=== PATIENT | male | born 1965 | race Caucasian/White ===

== ENCOUNTER 2018-03-26 16:17 | Inpatient (IN) | payer OTHER ==
--- NOTE | 2018-03-26 16:20 | PDOC ---
History of Present Illness - General History Source: Patient, Spouse Exam Limitations: No Limitations - History of Present Illness Initial Comments: 03/26/18 16:31 The patient is a 52 year old male, with a significant past medical history of HTN and sleep apnea, who presents to the emergency department with, pleuritic pain. As per patient, his chest pain originally onset as diffusely across the chest and has since worsened to right sided with associated shortness of breath. He notes that he was worked up for DVTs (with ultrasound studies) earlier this year. Patients notes his last stress test was earlier this year. He denies any palpitations. He denies any recent fevers, chills, headache or dizziness. He denies any recent nausea, vomit, diarrhea or constipation. He denies any recent dysuria, frequency, urgency or hematuria. Allergies: NKA Past surgical history: None reported. Social History: Works construction. Nonsmoker. Denies EtOH use and recreational drug use. Primary Care Physician: Dr. Abreu <Scooter Grajeda - Last Filed: 03/26/18 18:00> <Светлана Mitchell - Last Filed: 03/30/18 20:31> - General Chief Complaint: Chest Pain Stated Complaint: CHEST PAIN Time Seen by Provider: 03/26/18 16:20 Past History <Scooter rGajeda - Last Filed: 03/26/18 18:00> <Светлана Mitchell - Last Filed: 03/30/18 20:31> - Past Medical History Allergies/Adverse Reactions: Allergies Allergy/AdvReac Type Severity Reaction Status Date / Time No Known Allergies Allergy Verified 03/26/18 17:11 Home Medications: Ambulatory Orders Amlodipine Besylate [Norvasc -] 10 mg PO DAILY 03/26/18 Losartan Potassium 100 mg PO DAILY 03/26/18 Morphine Injection - [Morphine Injection 2 mg/1 mL -] 4 mg IVPUSH Q4H PRN #4 mg MDD 24 03/27/18 Pantoprazole Sodium [Protonix IV] 40 mg IVPUSH DAILY vial 03/27/18 Review of Systems - Review of Systems Able to Perform ROS?: Yes Comments:: 03/26/18 16:31 GENERAL/CONSTITUTIONAL: No fever or chills. No weakness. HEAD, EYES, EARS, NOSE AND THROAT: No change in vision. No ear pain or discharge. No sore throat. +CARDIOVASCULAR: Right sided chest pain. SOB. RESPIRATORY: No cough, wheezing, or hemoptysis. GASTROINTESTINAL: No nausea, vomiting, diarrhea or constipation. GENITOURINARY: No dysuria, frequency, or change in urination. MUSCULOSKELETAL: No joint or muscle swelling or pain. No neck or back pain. SKIN: No rash NEUROLOGIC: No headache, vertigo, loss of consciousness, or change in strength/ sensation. ENDOCRINE: No increased thirst. No abnormal weight change. HEMATOLOGIC/LYMPHATIC: No anemia, easy bleeding, or history of blood clots. ALLERGIC/IMMUNOLOGIC: No hives or skin allergy. All Other Systems: Reviewed and Negative <Scooter Grajeda - Last Filed: 03/26/18 18:00> *Physical Exam - Physical Exam Comments: GENERAL: Awake, alert, and fully oriented, in no acute distress HEAD: No signs of trauma EYES: PERRLA, EOMI, sclera anicteric, conjunctiva clear ENT: Auricles normal inspection, hearing grossly normal, nares patent, oropharynx clear without exudates. Moist mucosa NECK: Normal ROM, supple, no lymphadenopathy, JVD, or masses LUNGS: Breath sounds equal, clear to auscultation bilaterally. No wheezes, and no crackles. +Splinting upon deep inspiration. HEART: Regular rate and rhythm, normal S1 and S2, no murmurs, rubs or gallops ABDOMEN: Soft, nontender, normoactive bowel sounds. No guarding, no rebound. No masses EXTREMITIES: Normal range of motion, no edema. No clubbing or cyanosis. No cords, erythema, or tenderness NEUROLOGICAL: Cranial nerves II through XII grossly intact. Normal speech, normal gait SKIN: Warm, Dry, normal turgor, no rashes or lesions noted. <Светлана Mitchell - Last Filed: 03/30/18 20:31> Heart Score/ECG Review - History History: Slightly suspicious - Electrocardiogram EKG: Normal - Age Age: 45-65 - Risk Factors Risk Factors Heart Score: Yes Hx Hypertension, Yes Hx Obesity Based on the list above the patient has:: 1-2 risk factors - Troponin Troponin: </= normal limit - Score Heart Score - Total: 2 - ECG Impressions Comment:: EKG read 16:09- NSR 75 bpm, no acute ST/T changes <Светлана Mitchell - Last Filed: 03/30/18 20:31> ED Treatment Course - LABORATORY CBC & Chemistry Diagram: 03/26/18 16:35 03/26/18 16:35 <Scooter Grajeda - Last Filed: 03/26/18 18:00> - LABORATORY CBC & Chemistry Diagram: 03/27/18 07:35 03/27/18 07:35 <Светлана Mitchell - Last Filed: 03/30/18 20:31> Medical Decision Making - Medical Decision Making 03/26/18 19:[address] Moeller at 7pm shift change. Awaiting CTA to r/o PE due to elevated D-dimer. <Светлана Mitchell - Last Filed: 03/30/18 20:31> *DC/Admit/Observation/Transfer - Attestations Scribe Attestion: 03/26/18 16:31 Documentation prepared by Scooter Grajeda, acting as medical secretary teacher for Светлана Mitchell MD. <Scooter Grajeda - Last Filed: 03/26/18 18:00> <Светлана Mitchell - Last Filed: 03/30/18 20:31> Diagnosis at time of Disposition: Mediastinal mass, Pulmonary edema, Sleep apnea, Low oxygen saturation - Discharge Dispostion Condition at time of disposition: Stable
[2018-03-26 17:01] LABS: BASO % 0.3 % (0-2.0); EOS % 0.8 % (0-4.5); HEMATOCRIT 42.6 % (35.4-49); HEMOGLOBIN 14.2 GM/dl (11.7-16.9); LYMPH % 7.7 % (8-40); MCH 29.2 pg (25.7-33.7); MCHC 33.3 g/dl (32.0-35.9); MEAN CELL VOLUME 87.7 fl (80-96); MEAN PLT VOLUME 8.2 fl (7.5-11.1); MONO % 4.8 % (3.8-10.2); NEUT % 86.4 % (42.8-82.8); PLATELET COUNT 158 K/MM3 (134-434); RBC 4.86 M/mm3 (4.00-5.60); RDW 12.6 % (11.9-15.9); WHITE BLOOD COUNT 9.5 K/mm3 (4.0-10.8)
[2018-03-26 17:09] LABS: INR 1.2 (0.82-1.09); PROTHROMBIN TIME (PATIENT) 13.4 SEC (10.2-13.0)
[2018-03-26] MEDS ORDERED: KETOROLAC TROMETHAMINE 30 MG/1 ML VIAL IVPUSH ONE (17:13)
[2018-03-26 17:15] LABS: ALBUMIN 3.9 g/dl (3.5-5.0); ALK PHOS 59 U/L (32-92); ANION GAP 7 MMOL/L (8-16); BILIRUBIN,TOTAL 1.2 mg/dl (0.2-1.0); BLOOD UREA NITROGEN 17 mg/dl (7-18); CALCIUM 8.9 mg/dl (8.4-10.2); CHLORIDE 104 mmol/L (98-107); CO2 27 mmol/L (22-28); CREATININE 0.8 mg/dl (0.6-1.3); GLUCOSE,RANDOM 121 mg/dl (74-106); SGOT/AST 17 U/L (10-42); SGPT/ALT 25 U/L (10-40); SODIUM 138 mmol/L (136-145); TOT PROT 7.1 g/dl (6.4-8.3)
[2018-03-26] MEDS ORDERED: KETOROLAC TROMETHAMINE 30 MG/1 ML VIAL ONE (17:15)
[2018-03-26 17:52] LABS: N-TERMINAL BNP 64.2 pg/ml (5-125)
--- NOTE | 2018-03-26 20:48 | PDOC ---
*Physical Exam - Vital Signs Last Vital Signs Temp Pulse Resp BP Pulse Ox 99.6 F 75 28 H 134/66 94 L 03/26/18 19:59 03/26/18 19:59 03/26/18 19:59 03/26/18 19:59 03/26/18 19:59 <NicciScooter - Last Filed: 03/26/18 20:48> - Vital Signs Last Vital Signs Temp Pulse Resp BP Pulse Ox 99.6 F 75 28 H 134/66 94 L 03/26/18 19:59 03/26/18 19:59 03/26/18 19:59 03/26/18 19:59 03/26/18 19:59 <Kenya Moeller - Last Filed: 03/26/18 21:10> ED Treatment Course - LABORATORY CBC & Chemistry Diagram: 03/26/18 16:35 03/26/18 16:35 - ADDITIONAL ORDERS Additional order review: Laboratory Results 03/26/18 03/26/18 03/26/18 16:35 16:35 16:35 PT with INR INR D-Dimer 1225 H Sodium 138 Potassium 4.0 Chloride 104 Carbon Dioxide 27 Anion Gap 7 L BUN 17 Creatinine 0.8 Creat Clearance w eGFR > 60 Random Glucose 121 H Calcium 8.9 Total Bilirubin 1.2 H AST 17 ALT 25 Alkaline Phosphatase 59 Creatine Kinase 50 Troponin I < 0.03 B-Natriuretic Peptide 64.2 Total Protein 7.1 Albumin 3.9 03/26/18 16:35 PT with INR 13.4 H INR 1.20 D-Dimer Sodium Potassium Chloride Carbon Dioxide Anion Gap BUN Creatinine Creat Clearance w eGFR Random Glucose Calcium Total Bilirubin AST ALT Alkaline Phosphatase Creatine Kinase Troponin I B-Natriuretic Peptide Total Protein Albumin 03/26/18 16:35 RBC 4.86 MCV 87.7 MCHC 33.3 RDW 12.6 MPV 8.2 Neutrophils % 86.4 H Lymphocytes % 7.7 L Monocytes % 4.8 Eosinophils % 0.8 Basophils % 0.3 - RADIOLOGY Radiograph Interpretation: 03/26/18 20:49 EXAM: CTA chest with contrast [id number] DATE OF EXAM: 2018-03-26 18:45:48 REASON FOR EXAM: Right sided pleuritic chest pain COMPARISON: None Findings: 4.5 cm x 4.3 cm right anterior mediastinal mass. Differential diagnosis includes thymoma, adenopathy, hemorrhagic pericardial cyst, and metastatic disease. Evaluation of pulmonary arteries is limited due to respiratory motion and suboptimal opacification with IV contrast. No obvious pulmonary embolism. No evidence for aortic dissection Mild cardiomegaly without significant pericardial effusion. Small right pleural effusion. Mild bilateral patchy groundglass opacities and interstitial thickening in the lungs likely representing mild pulmonary edema. Scattered atelectasis and fibrotic changes in the remainder of the lungs. No pneumothorax. Possible hepatic steatosis. Splenomegaly. One or more of the following dose reduction techniques were used: automated exposure control, adjustment of the mA and/or kV according to patient size, use of iterative reconstructive technique. Read by: Salas Banegas MD - Medications Given in the ED: ED Medications Discontinued Medications Generic Name Dose Route Start Last Admin Trade Name Freq PRN Reason Stop Dose Admin Ketorolac Tromethamine 30 mg 03/26/18 17:13 03/26/18 17:20 Toradol Injection - IVPUSH 03/26/18 17:14 30 mg ONCE ONE Administration <Scooter Grajeda - Last Filed: 03/26/18 20:48> - LABORATORY CBC & Chemistry Diagram: 03/26/18 16:35 03/26/18 16:35 - ADDITIONAL ORDERS Additional order review: Laboratory Results 03/26/18 03/26/18 03/26/18 16:35 16:35 16:35 PT with INR INR D-Dimer 1225 H Sodium 138 Potassium 4.0 Chloride 104 Carbon Dioxide 27 Anion Gap 7 L BUN 17 Creatinine 0.8 Creat Clearance w eGFR > 60 Random Glucose 121 H Calcium 8.9 Total Bilirubin 1.2 H AST 17 ALT 25 Alkaline Phosphatase 59 Creatine Kinase 50 Troponin I < 0.03 B-Natriuretic Peptide 64.2 Total Protein 7.1 Albumin 3.9 03/26/18 16:35 PT with INR 13.4 H INR 1.20 D-Dimer Sodium Potassium Chloride Carbon Dioxide Anion Gap BUN Creatinine Creat Clearance w eGFR Random Glucose Calcium Total Bilirubin AST ALT Alkaline Phosphatase Creatine Kinase Troponin I B-Natriuretic Peptide Total Protein Albumin 03/26/18 16:35 RBC 4.86 MCV 87.7 MCHC 33.3 RDW 12.6 MPV 8.2 Neutrophils % 86.4 H Lymphocytes % 7.7 L Monocytes % 4.8 Eosinophils % 0.8 Basophils % 0.3 - Medications Given in the ED: ED Medications Discontinued Medications Generic Name Dose Route Start Last Admin Trade Name Kike PRN Reason Stop Dose Admin Ketorolac Tromethamine 30 mg 03/26/18 17:13 03/26/18 17:20 Toradol Injection - IVPUSH 03/26/18 17:14 30 mg ONCE ONE Administration <Kenya Moeller - Last Filed: 03/26/18 21:10> Medical Decision Making - Medical Decision Making 03/26/18 20:52 I paged Pt's physician Dr. Sujata Abreu. Dr Ellis was mission planner and understands pt's diagnosis. She agrees that pt can follow in the office tomorrow, and they can figure out a plan to work up patient as an outpatient. I spoke to our Pulm mission planner, who recommends that we obs the patient overnight, as his pulsox is running low 91-94% at rest off O2. <Kenya Moeller - Last Filed: 03/26/18 21:10> *DC/Admit/Observation/Transfer - Attestations Scribe Attestion: 03/26/18 20:49 Documentation prepared by Scooter Grajeda, acting as medical hospital sales for Kenya Moeller MD. <Scooter Grajeda - Last Filed: 03/26/18 20:48> - Discharge Dispostion Decision to Admit order: Yes <Kenya Moeller - Last Filed: 03/26/18 21:10> Diagnosis at time of Disposition: Mediastinal mass, Pulmonary edema, Sleep apnea, Low oxygen saturation - Discharge Dispostion Condition at time of disposition: Guarded - Referrals Referrals: Shruti Abreu [Primary Care Provider] - - Patient Instructions - Post Discharge Activity
[2018-03-26] MEDS ORDERED: MORPHINE SULFATE 2 MG/ML VIAL IVPUSH ONE (21:58)
[2018-03-26 22:17] VITALS: BMI 40.0
[2018-03-26] MEDS ORDERED: morphine CARPU-JECT 2 MG/1 ML DISP.SYRIN ONE (22:21)
--- NOTE | 2018-03-26 22:51 | HP ---
CHIEF COMPLAINT: Pleuritic chest pain PCP: Sujata Abreu HISTORY OF PRESENT ILLNESS: 52 year old male, with a significant past medical history of HTN and sleep apnea c/o right sided pleuritic chest pain about 6/10 in severity for the last 2 days. Started insiduously. No causative factors. Patient denied any fevers, shortness of breath, night sweats, or recent weight loss. No history of trauma. No relation of pain to exercise. 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 Denied any radiation exposure to chest. ER course was notable for: (1) CTA (2) (3) Recent Travel: none PAST MEDICAL HISTORY: HTN and sleep apnea PAST SURGICAL HISTORY: no Social History: Smoking: no Alcohol: no Drugs: no Family History: mother with MS, father with lung ca Allergies No Known Allergies Allergy (Verified 03/26/18 17:11) HOME MEDICATIONS: Home Medications Medication Instructions Recorded Amlodipine Besylate [Norvasc -] 10 mg PO DAILY 03/26/18 Losartan Potassium 100 mg PO DAILY 03/26/18 Rabeprazole Sodium [Aciphex] 20 mg PO DAILY 03/26/18 REVIEW OF SYSTEMS CONSTITUTIONAL: Absent: fever, chills, diaphoresis, generalized weakness, malaise, loss of appetite, weight change HEENT: Absent: rhinorrhea, nasal congestion, throat pain, throat swelling, difficulty swallowing, mouth swelling, ear pain, eye pain, visual changes CARDIOVASCULAR: Absent:, syncope, palpitations, irregular heart rate, lightheadedness, peripheral edema RESPIRATORY: Absent: cough, shortness of breath, dyspnea with exertion, orthopnea, wheezing, stridor, hemoptysis GASTROINTESTINAL: Absent: abdominal pain, abdominal distension, nausea, vomiting, diarrhea, constipation, melena, hematochezia GENITOURINARY: Absent: dysuria, frequency, urgency, hesitancy, hematuria, flank pain, genital pain MUSCULOSKELETAL: Present - right chest pain Absent: myalgia, arthralgia, joint swelling, back pain, neck pain SKIN: Absent: rash, itching, pallor HEMATOLOGIC/IMMUNOLOGIC: Absent: easy bleeding, easy bruising, lymphadenopathy, frequent infections ENDOCRINE: Absent: unexplained weight gain, unexplained weight loss, heat intolerance, cold intolerance NEUROLOGIC: Absent: headache, focal weakness or paresthesias, dizziness, unsteady gait, seizure, mental status changes, bladder or bowel incontinence PSYCHIATRIC: Absent: anxiety, depression, suicidal or homicidal ideation, hallucinations. PHYSICAL EXAMINATION Vital Signs - 24 hr 03/26/18 03/26/18 03/26/18 16:18 18:00 18:15 Temperature 99.4 F Pulse Rate 77 78 Pulse Rate [ 78 Right Radial] Respiratory 18 28 H Rate Blood Pressure 153/76 Blood Pressure 128/63 [Right Arm] O2 Sat by Pulse 97 90 L 92 L Oximetry (%) 03/26/18 03/26/18 03/26/18 18:16 18:21 19:59 Temperature 99.6 F Pulse Rate 75 80 Pulse Rate [ 75 Right Radial] Respiratory 28 H Rate Blood Pressure Blood Pressure 134/66 [Right Arm] O2 Sat by Pulse 95 96 94 L Oximetry (%) 03/26/18 03/26/18 03/26/18 20:57 21:09 21:10 Temperature 100.0 F H Pulse Rate 89 77 72 Pulse Rate [ Right Radial] Respiratory 20 Rate Blood Pressure 146/67 Blood Pressure [Right Arm] O2 Sat by Pulse 92 L 96 96 Oximetry (%) GENERAL: Awake, alert, and fully oriented, in no acute distress, morbidly obese HEAD: Normal with no signs of trauma. EYES: Pupils equal, round and reactive to light, extraocular movements intact, sclera anicteric, conjunctiva clear. No lid lag. EARS, NOSE, THROAT: Ears normal, nares patent, oropharynx clear without exudates. Moist mucous membranes. NECK: Normal range of motion, supple without lymphadenopathy, JVD, or masses. LUNGS: Breath sounds equal, clear to auscultation bilaterally. No wheezes, and no crackles. No accessory muscle use. HEART: Regular rate and rhythm, normal S1 and S2 without murmur, rub or gallop. ABDOMEN: Soft, obese, nontender, not distended, normoactive bowel sounds, no guarding, no rebound, no masses. No hepatomegaly or splenomegaly. MUSCULOSKELETAL: Normal range of motion at all joints. No bony deformities or tenderness. No CVA tenderness. UPPER EXTREMITIES: 2+ pulses, warm, well-perfused. No cyanosis. No clubbing. No peripheral edema. LOWER EXTREMITIES: 2+ pulses, warm, well-perfused. No calf tenderness. No peripheral edema. NEUROLOGICAL: Cranial nerves II-XII intact. Normal speech. Normal gait. PSYCHIATRIC: Cooperative. Good eye contact. Appropriate mood and affect. SKIN: Warm, dry, normal turgor, no rashes or lesions noted, normal capillary refill. Laboratory Results - last 24 hr 03/26/18 03/26/18 03/26/18 16:35 16:35 16:35 WBC 9.5 RBC 4.86 Hgb 14.2 Hct 42.6 MCV 87.7 MCH 29.2 MCHC 33.3 RDW 12.6 Plt Count 158 MPV 8.2 Absolute Neuts (auto) 8.2 Neutrophils % 86.4 H Lymphocytes % 7.7 L Monocytes % 4.8 Eosinophils % 0.8 Basophils % 0.3 PT with INR 13.4 H INR 1.20 D-Dimer Sodium 138 Potassium 4.0 Chloride 104 Carbon Dioxide 27 Anion Gap 7 L BUN 17 Creatinine 0.8 Creat Clearance w eGFR > 60 Random Glucose 121 H Calcium 8.9 Total Bilirubin 1.2 H AST 17 ALT 25 Alkaline Phosphatase 59 Creatine Kinase 50 Troponin I B-Natriuretic Peptide 64.2 Total Protein 7.1 Albumin 3.9 03/26/18 03/26/18 16:35 16:35 WBC RBC Hgb Hct MCV MCH MCHC RDW Plt Count MPV Absolute Neuts (auto) Neutrophils % Lymphocytes % Monocytes % Eosinophils % Basophils % PT with INR INR D-Dimer 1225 H Sodium Potassium Chloride Carbon Dioxide Anion Gap BUN Creatinine Creat Clearance w eGFR Random Glucose Calcium Total Bilirubin AST ALT Alkaline Phosphatase Creatine Kinase Troponin I < 0.03 B-Natriuretic Peptide Total Protein Albumin CTA report reviewed- no PE, 4.3 x 4.5 cm right anterior mediastinal mass, hepatic steatosis, splenomegally ekg reviewed wnl. ASSESSMENT/PLAN: #52yo man with right anterior mediastinal mass- 4.3 cm x 4.5cm. Differential diagnosis includes thymoma, adenopathy, malignancy. Patient will require biopsy for diagnosis. Doubt cardiac source of chest pain as normal ekg and negative troponin. -observation -supplemental oxygen therapy through nasal cannula -ibuprofen 600mg po q6hrs prn if chest pain -thoracic surgery referral for biopsy of mediastinal mass -restart amlodipine and losartan -heparin sc for dvt ppx Visit type - Emergency Visit Emergency Visit: Yes ED Registration Date: 03/26/18 Care time: The patient presented to the Emergency Department on the above date and was hospitalized for further evaluation of their emergent condition. - New Patient This patient is new to me today: Yes Date on this admission: 03/27/18 - Critical Care Critical Care patient: No
[2018-03-26] MEDS: IBUPROFEN 600 MG TABLET (FP) PO PRN (23:53)
[2018-03-27] MEDS ORDERED: HEPARIN NA (PORCINE) 5,000 UNITS/ML 1ML VIAL SQ SCH (06:00)
[2018-03-27 08:49] LABS: HEMOGLOBIN 13.1 GM/dl (11.7-16.9); MCH 29.7 pg (25.7-33.7); MCHC 33.7 g/dl (32.0-35.9); MEAN PLT VOLUME 8.5 fl (7.5-11.1); PLATELET COUNT 141 K/MM3 (134-434); RBC 4.44 M/mm3 (4.00-5.60); RDW 12.2 % (11.9-15.9); WHITE BLOOD COUNT 8.3 K/mm3 (4.0-10.8)
[2018-03-27 09:00] LABS: ANION GAP 5 MMOL/L (8-16); BLOOD UREA NITROGEN 17 mg/dl (7-18); CALCIUM 8.6 mg/dl (8.4-10.2); CHLORIDE 106 mmol/L (98-107); CO2 29 mmol/L (22-28); CREATININE 0.6 mg/dl (0.6-1.3); GLUCOSE,RANDOM 105 mg/dl (74-106); POTASSIUM 4.2 mmol/L (3.5-5.1); SODIUM 140 mmol/L (136-145)
[2018-03-27] MEDS ORDERED: PATIENT'S OWN MEDICATION (NON-FORMULARY) (Losartan Potassium [Losartan Potassium] 100 MG) PO SCH (10:00)
[2018-03-27] MEDS: LOSARTAN POTASSIUM 50 MG TABLET (FP) PO SCH (10:06)
[2018-03-27] MEDS: amLODIPine BESYLATE 10 MG TABLET (FP) PO SCH (10:06)
--- NOTE | 2018-03-27 11:50 | PN ---
Physical Exam: SUBJECTIVE: Patient seen and examined OBJECTIVE: Vital Signs Period Temp Pulse Resp BP Sys/Clarke Pulse Ox Last 24 Hr 98.3 F-100.0 F 66-89 18-28 124-153/50-76 90-97 GENERAL: The patient is awake, alert, and fully oriented, in no acute distress. HEAD: Normal with no signs of trauma. EYES: PERRL, extraocular movements intact, sclera anicteric, conjunctiva clear. No ptosis. ENT: Ears normal, nares patent, oropharynx clear without exudates, moist mucous membranes. NECK: Trachea midline, full range of motion, supple. LUNGS: Breath sounds equal, clear to auscultation bilaterally, no wheezes, no crackles, no accessory muscle use. HEART: Regular rate and rhythm, S1, S2 without murmur, rub or gallop. ABDOMEN: Soft, nontender, nondistended, normoactive bowel sounds, no guarding, no rebound, no hepatosplenomegaly, no masses. EXTREMITIES: 2+ pulses, warm, well-perfused, no edema. NEUROLOGICAL: Cranial nerves II through XII grossly intact. Normal speech, gait not observed. PSYCH: Normal mood, normal affect. SKIN: Warm, dry, normal turgor, no rashes or lesions noted Laboratory Results - last 24 hr 03/26/18 03/26/18 03/26/18 16:35 16:35 16:35 WBC 9.5 RBC 4.86 Hgb 14.2 Hct 42.6 MCV 87.7 MCH 29.2 MCHC 33.3 RDW 12.6 Plt Count 158 MPV 8.2 Absolute Neuts (auto) 8.2 Neutrophils % 86.4 H Lymphocytes % 7.7 L Monocytes % 4.8 Eosinophils % 0.8 Basophils % 0.3 PT with INR 13.4 H INR 1.20 D-Dimer Sodium 138 Potassium 4.0 Chloride 104 Carbon Dioxide 27 Anion Gap 7 L BUN 17 Creatinine 0.8 Creat Clearance w eGFR > 60 Random Glucose 121 H Calcium 8.9 Total Bilirubin 1.2 H AST 17 ALT 25 Alkaline Phosphatase 59 Creatine Kinase 50 Troponin I B-Natriuretic Peptide 64.2 Total Protein 7.1 Albumin 3.9 03/26/18 03/26/18 03/27/18 16:35 16:35 07:35 WBC 8.3 RBC 4.44 Hgb 13.1 Hct 39.0 MCV 88.0 MCH 29.7 MCHC 33.7 RDW 12.2 Plt Count 141 MPV 8.5 Absolute Neuts (auto) Neutrophils % Lymphocytes % Monocytes % Eosinophils % Basophils % PT with INR INR D-Dimer 1225 H Sodium Potassium Chloride Carbon Dioxide Anion Gap BUN Creatinine Creat Clearance w eGFR Random Glucose Calcium Total Bilirubin AST ALT Alkaline Phosphatase Creatine Kinase Troponin I < 0.03 B-Natriuretic Peptide Total Protein Albumin 03/27/18 07:35 WBC RBC Hgb Hct MCV MCH MCHC RDW Plt Count MPV Absolute Neuts (auto) Neutrophils % Lymphocytes % Monocytes % Eosinophils % Basophils % PT with INR INR D-Dimer Sodium 140 Potassium 4.2 Chloride 106 Carbon Dioxide 29 H Anion Gap 5 L BUN 17 Creatinine 0.6 Creat Clearance w eGFR > 60 Random Glucose 105 Calcium 8.6 Total Bilirubin AST ALT Alkaline Phosphatase Creatine Kinase Troponin I B-Natriuretic Peptide Total Protein Albumin Active Medications Generic Name Dose Route Start Last Admin Trade Name Freq PRN Reason Stop Dose Admin Amlodipine Besylate 10 mg 03/27/18 10:00 03/27/18 10:06 Norvasc - PO 10 mg DAILY AHSAN Administration Heparin Sodium (Porcine) 5,000 unit 03/27/18 06:00 03/27/18 05:35 Heparin - SQ 5,000 unit TID AHSAN Administration Ibuprofen 600 mg 03/26/18 22:51 03/26/18 23:53 Motrin - PO 600 mg Q6H PRN Administration PAIN LEVEL 6-10 Losartan Potassium 100 mg 03/27/18 10:00 03/27/18 10:06 Cozaar - PO 100 mg DAILY AHSAN Administration ASSESSMENT/PLAN: 52 year-old male with a PMH sigificant for HTN and sleep apnea. Placed on observation for right pleuritic chest pain with associated shortness of breath. Found to have a mediastinal mass. Mediastinal mass --03/26 CTA: 4.7 x 4.0 x 4.9cm mediastinal mass within the right cardiophrenic angle, pericardial cyst v. lymph node v. malignancy --symptomatic: right-sided chest pain above the right nipple, described as 10 /10 "excruciating" with cough and deep breathing --03/26 ECG: sinus rhythm --telemetry monitoring: no events --US b/l LE: negative for DVT --morphine PRN Chest pain --CTA: grossly negative for PE, distal branch PE cannot be excluded --start lovenox 120mg BID r/o heart failure --CT: mild pulmonary vascular congestion, small right pericardial effusion, trace extremity edema, decreased exercise tolerance x 2 weeks --03/27 Echo: LV function "low normal" EF 55-60% no RWMA; RV not well- visualized; LAE; no valvular pathology --was on furosemide until one month ago, stopped because of muscle cramps --Dr. Shruti Abreu ([phone]), [facility] api product manager, out of office today Hypertension --continue losartan, amlodipine FEN Fluids: PO intake adequate DVT prophylaxis: lovenox Dispo: continues to require inpatient care. Full code. Visit type - Emergency Visit Emergency Visit: Yes ED Registration Date: 03/26/18 Care time: The patient presented to the Emergency Department on the above date and was hospitalized for further evaluation of their emergent condition. - New Patient This patient is new to me today: Yes Date on this admission: 03/27/18 - Critical Care Critical Care patient: No
[2018-03-27] MEDS: ENOXAPARIN NA (PORCINE) 120 MG/0.8 ML DISP.SYRIN SQ SCH ×2 (12:50→20:59)
--- NOTE | 2018-03-27 13:04 | DS ---
Physical Exam: SUBJECTIVE: Patient seen and examined OBJECTIVE: Vital Signs Period Temp Pulse Resp BP Sys/Clarke Pulse Ox Last 24 Hr 98.3 F-100.0 F 66-89 18-28 124-153/50-80 90-97 PHYSICAL EXAM GENERAL: The patient is awake, alert, and fully oriented, in no acute distress. HEAD: Normal with no signs of trauma. EYES: PERRL, extraocular movements intact, sclera anicteric, conjunctiva clear. ENT: Ears normal, nares patent, oropharynx clear without exudates, moist mucous membranes. NECK: Trachea midline, full range of motion, supple. LUNGS: Breath sounds equal, clear to auscultation bilaterally, no wheezes, no crackles, no accessory muscle use. HEART: Regular rate and rhythm, S1, S2 without murmur, rub or gallop. ABDOMEN: Soft, nontender, nondistended, normoactive bowel sounds, no guarding, no rebound, no hepatosplenomegaly, no masses. EXTREMITIES: 2+ pulses, warm, well-perfused, no edema. NEUROLOGICAL: Cranial nerves II through XII grossly intact. Normal speech, gait not observed. PSYCH: Normal mood, normal affect. SKIN: Warm, dry, normal turgor, no rashes or lesions noted. LABS Laboratory Results - last 24 hr 03/26/18 03/26/18 03/26/18 16:35 16:35 16:35 WBC 9.5 RBC 4.86 Hgb 14.2 Hct 42.6 MCV 87.7 MCH 29.2 MCHC 33.3 RDW 12.6 Plt Count 158 MPV 8.2 Absolute Neuts (auto) 8.2 Neutrophils % 86.4 H Lymphocytes % 7.7 L Monocytes % 4.8 Eosinophils % 0.8 Basophils % 0.3 PT with INR 13.4 H INR 1.20 D-Dimer Sodium 138 Potassium 4.0 Chloride 104 Carbon Dioxide 27 Anion Gap 7 L BUN 17 Creatinine 0.8 Creat Clearance w eGFR > 60 Random Glucose 121 H Calcium 8.9 Total Bilirubin 1.2 H AST 17 ALT 25 Alkaline Phosphatase 59 Creatine Kinase 50 Troponin I B-Natriuretic Peptide 64.2 Total Protein 7.1 Albumin 3.9 03/26/18 03/26/18 03/27/18 16:35 16:35 07:35 WBC 8.3 RBC 4.44 Hgb 13.1 Hct 39.0 MCV 88.0 MCH 29.7 MCHC 33.7 RDW 12.2 Plt Count 141 MPV 8.5 Absolute Neuts (auto) Neutrophils % Lymphocytes % Monocytes % Eosinophils % Basophils % PT with INR INR D-Dimer 1225 H Sodium Potassium Chloride Carbon Dioxide Anion Gap BUN Creatinine Creat Clearance w eGFR Random Glucose Calcium Total Bilirubin AST ALT Alkaline Phosphatase Creatine Kinase Troponin I < 0.03 B-Natriuretic Peptide Total Protein Albumin 03/27/18 03/27/18 07:35 12:00 WBC RBC Hgb Hct MCV MCH MCHC RDW Plt Count MPV Absolute Neuts (auto) Neutrophils % Lymphocytes % Monocytes % Eosinophils % Basophils % PT with INR INR D-Dimer Sodium 140 Potassium 4.2 Chloride 106 Carbon Dioxide 29 H Anion Gap 5 L BUN 17 Creatinine 0.6 Creat Clearance w eGFR > 60 Random Glucose 105 Calcium 8.6 Total Bilirubin AST ALT Alkaline Phosphatase Creatine Kinase Troponin I < 0.03 B-Natriuretic Peptide Total Protein Albumin HOSPITAL COURSE: Date of Admission:03/26/18 Date of Discharge: 03/27/18 Dispo: Transfer to CT service at [place]. Full code. Minutes to complete discharge: 35 Discharge Summary Reason For Visit: MEDIALSINAL MASS Current Active Problems Low oxygen saturation (Acute) Mediastinal mass (Acute) Pulmonary edema (Acute) Sleep apnea (Acute) Condition: Guarded - Instructions Referrals: Shruti Abreu [Primary Care Provider] - - Home Medications Comprehensive Discharge Medication List: Ambulatory Orders Amlodipine Besylate [Norvasc -] 10 mg PO DAILY 03/26/18 Losartan Potassium 100 mg PO DAILY 03/26/18 Rabeprazole Sodium [Aciphex] 20 mg PO DAILY 03/26/18 This patient is new to me today: Yes Date on this admission: 03/27/18 Emergency Visit: Yes ED Registration Date: 03/26/18 Care time: The patient presented to the Emergency Department on the above date and was hospitalized for further evaluation of their emergent condition. Critical Care patient: No - Discharge Referral Referred to [facility] Med P.C.: No
--- NOTE | 2018-03-27 13:54 | CON.PULM ---
Consult Consult Specialty:: PULMONARY Referred by:: ROBERTO Reason for Consultation:: MEDIASTINAL MASS - History of Present Illness Chief Complaint: RIGHT ANTERIOR PLEURITIC CHEST PAIN History of Present Illness: The patient is a 52 year old male, with a significant past medical history of HTN and sleep apnea, who presents to the emergency department with, pleuritic pain. As per patient, his chest pain originally onset as diffusely across the chest and has since worsened to right sided with associated shortness of breath. He notes that he was worked up for DVTs (with ultrasound studies) earlier this year. Patients notes his last stress test was 03/2017. He denies any palpitations. He denies any recent fevers, chills, headache or dizziness. He denies any recent nausea, vomit, diarrhea or constipation. He denies any recent dysuria, frequency, urgency or hematuria. I have called Dr. Abreu's office and spoke with unclaimed property officer. she faxed a copy of the nuclear medicine lexiscan which has an addendum "uptake in the right mid upper thorax of unclear etiology". I have called the radiology dept. at [facility] numerous times but was unable to get through. 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 No: AFIB, CAD Pulmonary: Yes: Sleep Apnea. No: Asthma Gastrointestinal: No: Ascites Hepatobiliary: No: Cirrhosis Renal/: No: Renal Failure Heme/Onc: No: Anemia Psych: No: Addictions Endocrine: No: Diabetes Mellitus - Past Surgical History Past Surgical History: Yes: Arthrosocopy (knee) - Alcohol/Substance Use Hx Alcohol Use: Yes (SOCIAL) History of Substance Use: reports: None - Smoking History Smoking history: Never smoked Have you smoked in the past 12 months: No - Social History Usual Living Arrangement: With Spouse Place of : [facility] History of Recent Travel: No Home Medications - Allergies Allergies/Adverse Reactions: Allergies Allergy/AdvReac Type Severity Reaction Status Date / Time No Known Allergies Allergy Verified 03/26/18 17:11 - Home Medications Home Medications: Ambulatory Orders Amlodipine Besylate [Norvasc -] 10 mg PO DAILY 03/26/18 Losartan Potassium 100 mg PO DAILY 03/26/18 Rabeprazole Sodium [Aciphex] 20 mg PO DAILY 03/26/18 Family Disease History - Family Disease History Family History: Unremarkable Review of Systems - Review of Systems Constitutional: denies: Fever Eyes: denies: Blurred Vision HENT: denies: Difficult Swallowing Neck: denies: Decreased ROM Cardiovascular: reports: Chest Pain Respiratory: reports: Cough, Exercise Intolerance, SOB on Exertion. denies: Hemoptysis, Orthopnea, Wheezing Gastrointestinal: denies: Abdominal Pain Genitourinary: denies: Burning Breasts: reports: No Symptoms Reported Musculoskeletal: reports: No Symptoms Integumentary: reports: No Symptoms Physical Exam Vital Sings: Vital Signs Temperature 98.6 F 03/27/18 11:56 Pulse Rate 69 03/27/18 11:56 Respiratory Rate 18 03/27/18 11:56 Blood Pressure 145/80 03/27/18 11:56 O2 Sat by Pulse Oximetry (%) 96 03/27/18 10:00 Constitutional: Yes: Calm Eyes: Yes: EOM Intact HENT: Yes: Normocephalic Neck: Yes: Trachea Midline Cardiovascular: Yes: Regular Rate and Rhythm Respiratory: Yes: Other (splinting with diminished breath sounds at bases) ...Clubbing: No Gastrointestinal: Yes: Normal Bowel Sounds Extremities: Yes: WNL Edema: No Integumentary: Yes: WNL Neurological: Yes: WNL ...Motor Strength: WNL Psychiatric: Yes: WNL Labs: CBC, BMP 03/27/18 07:35 03/27/18 07:35 rest reviewed Imaging - Results Chest X-ray: Report Reviewed, Image Reviewed Cat Scan: Report Reviewed, Image Reviewed EKG: Report Reviewed Problem List - Problems (1) Mediastinal mass Code(s): J98.59 - OTHER DISEASES OF MEDIASTINUM, NOT ELSEWHERE CLASSIFIED (2) Sleep apnea Code(s): G47.30 - SLEEP APNEA, UNSPECIFIED Assessment/Plan THE LOCATION AND THE POSITIVE UPTAKE BY TECHNETIUM DURING A LEXISCAN STRESS TEST IN 2017 SUGGESTS A THYMIC OR THYROID ETIOLOGY. OTHER CONSIDERATIONS WOULD BE A GERM CELL TUMOR BASED ON LOCATION. PATIENT IS SLATED FOR TRANSFER TO [facility] FOR FURTHER WORKUP AND DIAGNOSTIC PROCEDURE. Manuel EDWARDS MD
--- NOTE | 2018-03-27 15:05 | ECHO ---
Name: TATY DELILAH Exam:Adult Echocardiogram Study Date: 03/27/2018 11:27 AM Age: 52 yrs Reason For Study: CHF Height: 69 in Weight: 271 lb BSA: 2.3 m2 MMode/2D Measurements & Calculations IVSd: 1.0 cm Ao root diam: 2.7 cm LVIDd: 5.4 cm LA dimension: 4.3 cm LVIDs: 4.4 cm LVPWd: 0.92 cm EDV(Teich): 141.8 ml ESV(Teich): 89.5 ml Doppler Measurements & Calculations MV E max john: 75.9 cm/sec MV A max john: 67.8 cm/sec MV dec slope: 501.9 cm/sec2 MV E/A: 1.1 Procedure A complete two-dimensional transthoracic echocardiogram was performed (2D, M-mode, Doppler and color flow Doppler). Technically limited study. Left Ventricle The left ventricle is normal in size. Left ventricular systolic function is low normal. Ejection Frac tion = 55-60%. No regional wall motion abnormalities noted. Right Ventricle The right ventricle is not well visualized. Atria The left atrium is mildly dilated. Right atrial size is normal. Mitral Valve There is mild mitral annular calcification. There is no mitral regurgitation noted. Tricuspid Valve The tricuspid valve is normal in structure and function. No tricuspid regurgitation. Aortic Valve There is mild aortic sclerosis.;. No aortic regurgitation is present. Pulmonic Valve The pulmonic valve is not well visualized. Great Vessels The aortic root is normal size. Pericardium/Pleura There is no pericardial effusion. Interpretation Summary Technically limited study The left ventricle is normal in size. Left ventricular systolic function is low normal. No regional wall motion abnormalities noted. Ejection Fraction = 55-60%. The right ventricle is not well visualized. The left atrium is mildly dilated. Right atrial size is normal. There is mild mitral annular calcification. There is mild aortic sclerosis.; No significant valvular regurgitations are seen There is no pericardial effusion. Previous study is not available for comparison Willy Guevara MD 03/27/2018 03:05 PM
[2018-03-27] MEDS: morphine CARPU-JECT 2 MG/1 ML DISP.SYRIN IVPUSH PRN ×2 (15:14→17:24)
[2018-03-27] MEDS ORDERED: morphine CARPU-JECT 2 MG/1 ML DISP.SYRIN IVPUSH ONE (17:25)
--- NOTE | 2018-03-27 17:37 | DS ---
Physical Exam: SUBJECTIVE: Patient seen and examined. Pain is 10/10 with movement. Morphine 2mg had little effect. OBJECTIVE: Vital Signs Period Temp Pulse Resp BP Sys/Clarke Pulse Ox Last 24 Hr 98.3 F-100.0 F 66-89 18-28 124-152/50-80 90-96 PHYSICAL EXAM GENERAL: The patient is awake, alert, and fully oriented, in no acute distress. LUNGS: Breath sounds equal, clear to auscultation bilaterally, no wheezes, no crackles, no accessory muscle use. HEART: Regular rate and rhythm, S1, S2 ABDOMEN: Soft, nontender, nondistended UPPER EXTREMITIES: 2+ pulses, warm, well-perfused, no edema. LOWER EXTREMITIES: trace bilateral edema, no calf tenderness, warm, well- perfused NEUROLOGICAL: Cranial nerves II through XII grossly intact. Normal speech, gait not observed. Laboratory Results - last 24 hr 03/26/18 03/26/18 03/27/18 16:35 16:35 07:35 WBC 8.3 RBC 4.44 Hgb 13.1 Hct 39.0 MCV 88.0 MCH 29.7 MCHC 33.7 RDW 12.2 Plt Count 141 MPV 8.5 D-Dimer 1225 H Sodium Potassium Chloride Carbon Dioxide Anion Gap BUN Creatinine Creat Clearance w eGFR Random Glucose Calcium Troponin I B-Natriuretic Peptide 64.2 03/27/18 03/27/18 07:35 12:00 WBC RBC Hgb Hct MCV MCH MCHC RDW Plt Count MPV D-Dimer Sodium 140 Potassium 4.2 Chloride 106 Carbon Dioxide 29 H Anion Gap 5 L BUN 17 Creatinine 0.6 Creat Clearance w eGFR > 60 Random Glucose 105 Calcium 8.6 Troponin I < 0.03 B-Natriuretic Peptide HOSPITAL COURSE: Date of Admission:03/27/18 Date of Discharge: 03/27/18 Pre hospital course 52 year-old male with a PMH sigificant for HTN and sleep apnea. Describes onset of chest pain five days ago. Initially the pain was across the upper chest, across the midline. On Tuesday night, the pain localized to the upper right chest, just above the nipple. Patient describes as a stabbing, excruciating, 10/ 10 pain. The pain continued to Tuesday and when he could no longer tolerate he came to ED. Patient states the pain is made worse with coughing and deep breathing. It is better with shallow breathing and no movement. Patient was on Lasix until one month ago when it was stopped because he was experiencing muscle cramps. At the time the lasix was stopped he was started on amlodipine. Two weeks ago patient began experiencing decreased exercise tolerance. Usually walks 20 minutes on treadmill and has felt fatigued with leg cramps. There was no pain associated with exercise. Patient denies dizziness, palpitations, diaphoresis, orthopnea, PND. He states the trace edema in his legs is baseline. Subsequent hospital course by problem list Mediastinal mass --03/26 CTA: 4.7 x 4.0 x 4.9cm mediastinal mass within the right cardiophrenic angle, pericardial cyst v. lymph node v. malignancy --symptomatic: right-sided chest pain above the right nipple, described as 10 "excruciating" with cough and deep breathing --03/26 ECG: sinus rhythm --telemetry monitoring: no events --US b/l LE: negative for DVT --increased morphine to 4mg q4h PRN Chest pain r/o PE --CTA: grossly negative for PE, distal branch PE cannot be excluded --discussed with pulmonology, gave one dose lovenox 120mg BID on 03/27 at 12: 50pm r/o heart failure --CT: mild pulmonary vascular congestion, small right pericardial effusion, trace extremity edema, decreased exercise tolerance x 2 weeks --03/27 Echo: LV function "low normal" EF 55-60% no RWMA; RV not well- visualized; LAE; no valvular pathology --was on furosemide until one month ago, stopped because of muscle cramps Hypertension --continue losartan, amlodipine Fluids: PO intake has been adequate, no IV fluids given Dispo: Accepted for transfer by Dr. Mooney to CT service at [place]. CD-ROMs of imaging studies with chart. Patient's PCP is Dr. Dr. Shruti Abreu ), [facility] clinical laboratory assistant, out of office today and could not be reached. Full code. Minutes to complete discharge: 35 Discharge Summary Reason For Visit: MEDIALSINAL MASS Current Active Problems Low oxygen saturation (Acute) Mediastinal mass (Acute) Pulmonary edema (Acute) Sleep apnea (Acute) Condition: Stable - Instructions Referrals: Shruti Abreu [Primary Care Provider] - Disposition: TRANSFER ACUTE CARE/OTHER HOSP - Home Medications Comprehensive Discharge Medication List: Ambulatory Orders Amlodipine Besylate [Norvasc -] 10 mg PO DAILY 03/26/18 Losartan Potassium 100 mg PO DAILY 03/26/18 Enoxaparin [Lovenox -] 120 mg SQ BID disp.syrin 03/27/18 Morphine Injection - [Morphine Injection 2 mg/1 mL -] 4 mg IVPUSH Q4H PRN #4 mg MDD 24 03/27/18 This patient is new to me today: Yes Date on this admission: 03/27/18 Emergency Visit: Yes ED Registration Date: 03/27/18 Care time: The patient presented to the Emergency Department on the above date and was hospitalized for further evaluation of their emergent condition. Critical Care patient: No - Discharge Referral Referred to [facility] Med P.C.: No
[2018-03-27] MEDS: PANTOPRAZOLE SODIUM 40 MG VIAL IVPUSH SCH (17:55)
[2018-03-27] MEDS ORDERED: PT OWN MED DRAWER 7, Y5N ONE (20:54)
[2018-03-27] MEDS: IBUPROFEN 600 MG TABLET (FP) PO PRN (20:59)
[2018-03-27] MEDS ORDERED: morphine SULFATE 4 MG/ML VIAL IVPUSH PRN (21:00)
[2018-03-28] MEDS ORDERED: PT OWN MED DRAWER 7, Y5N ONE ×2 (08:45→09:35)
[2018-03-28] MEDS: LOSARTAN POTASSIUM 50 MG TABLET (FP) PO SCH (09:09)
[2018-03-28] MEDS: amLODIPine BESYLATE 10 MG TABLET (FP) PO SCH (09:09)
[2018-03-28] MEDS: PANTOPRAZOLE SODIUM 40 MG VIAL IVPUSH SCH (09:10)
[2018-03-28] MEDS: ENOXAPARIN NA (PORCINE) 120 MG/0.8 ML DISP.SYRIN SQ SCH (10:50)
[2018-03-28] MEDS ORDERED: ACETAMINOPHEN 325 MG TABLET (FP) PO PRN (13:02)
[2018-03-29] MEDS: amLODIPine BESYLATE 10 MG TABLET (FP) PO SCH (09:21)
[2018-03-29] MEDS: PANTOPRAZOLE SODIUM 40 MG VIAL IVPUSH SCH (09:21)
[2018-03-29] MEDS: LOSARTAN POTASSIUM 50 MG TABLET (FP) PO SCH (09:21)
--- NOTE | 2018-03-29 13:23 | PN ---
Physical Exam: SUBJECTIVE: Patient seen and examined. Still with right-sided pain but tolerable , declining pain meds. OBJECTIVE: Vital Signs Period Temp Pulse Resp BP Sys/Clarke Pulse Ox Last 24 Hr 98.1 F-99.2 F 63-74 18-18 125-146/60-82 98-100 GENERAL: The patient is awake, alert, and fully oriented, in no acute distress. LUNGS: Breath sounds equal, clear to auscultation bilaterally, no wheezes, no crackles, no accessory muscle use. HEART: Regular rate and rhythm, S1, S2 ABDOMEN: Soft, nontender, nondistended UPPER EXTREMITIES: 2+ pulses, warm, well-perfused, no edema. LOWER EXTREMITIES: trace bilateral edema, no calf tenderness, warm, well- perfused NEUROLOGICAL: Cranial nerves II through XII grossly intact. Normal speech, gait not observed. Active Medications Generic Name Dose Route Start Last Admin Trade Name Freq PRN Reason Stop Dose Admin Acetaminophen 650 mg 03/28/18 13:02 Tylenol - PO Q6H PRN PAIN LEVEL 1-5 Amlodipine Besylate 10 mg 03/27/18 10:00 03/29/18 09:21 Norvasc - PO 10 mg DAILY AHSAN Administration Losartan Potassium 100 mg 03/27/18 10:00 03/29/18 09:21 Cozaar - PO 100 mg DAILY AHSAN Administration Morphine Sulfate 4 mg 03/27/18 21:00 Morphine Sulfate IVPUSH Q4H PRN PAIN LEVEL 6-10 Pantoprazole Sodium 40 mg 03/27/18 17:45 03/29/18 09:21 Protonix Iv IVPUSH 40 mg DAILY AHSAN Administration ASSESSMENT/PLAN: Mediastinal mass --03/26 CTA: 4.7 x 4.0 x 4.9cm mediastinal mass within the right cardiophrenic angle, pericardial cyst v. lymph node v. malignancy --symptomatic: right-sided chest pain above the right nipple --03/26 ECG: sinus rhythm --telemetry monitoring: no events --US b/l LE: negative for DVT --morphine, Tylenol PRN for pain Chest pain r/o PE --CTA: grossly negative for PE --very low suspicion for PE, no further workup indicated r/o heart failure --CT: mild pulmonary vascular congestion, small right pericardial effusion, trace extremity edema, decreased exercise tolerance x 2 weeks --03/27 Echo: LV function "low normal" EF 55-60% no RWMA; RV not well- visualized; LAE; no valvular pathology --was on furosemide until one month ago, stopped because of muscle cramps Hypertension --continue losartan, amlodipine Fluids: PO intake has been adequate, no IV fluids given Dispo: Accepted for transfer by Dr. Mooney to CT service at [place]. CD-ROMs of imaging studies with chart. Visit type - Emergency Visit Emergency Visit: Yes ED Registration Date: 03/27/18 Care time: The patient presented to the Emergency Department on the above date and was hospitalized for further evaluation of their emergent condition. - New Patient This patient is new to me today: No - Critical Care Critical Care patient: No
[2018-03-30] MEDS: LOSARTAN POTASSIUM 50 MG TABLET (FP) PO SCH (09:24)
[2018-03-30] MEDS: PANTOPRAZOLE SODIUM 40 MG VIAL IVPUSH SCH (09:24)
[2018-03-30] MEDS: amLODIPine BESYLATE 10 MG TABLET (FP) PO SCH (09:24)
--- NOTE | 2018-03-31 09:02 | PN ---
Physical Exam: SUBJECTIVE: Patient seen and examined. His chest discomfort is stable, its constant and worsens with deep breaths. However, no overt sob. OBJECTIVE: Vital Signs Period Temp Pulse Resp BP Sys/Clarke Pulse Ox Last 24 Hr 98 F-98.5 F 58-72 15-20 125-145/56-75 96-100 PE Neuro: alert, awake, cn 2-12intact Pulm: CTAB CV: S1 s2 rrr no mrg Abd: s nt nd + bs Ext:warm, no le edema Active Medications Generic Name Dose Route Start Last Admin Trade Name Freq PRN Reason Stop Dose Admin Acetaminophen 650 mg 03/28/18 13:02 03/29/18 21:05 Tylenol - PO 650 mg Q6H PRN Administration PAIN LEVEL 1-5 Amlodipine Besylate 10 mg 03/27/18 10:00 03/30/18 09:24 Norvasc - PO 10 mg DAILY AHSAN Administration Losartan Potassium 100 mg 03/27/18 10:00 03/30/18 09:24 Cozaar - PO 100 mg DAILY AHSAN Administration Morphine Sulfate 4 mg 03/27/18 21:00 Morphine Sulfate IVPUSH Q4H PRN PAIN LEVEL 6-10 Pantoprazole Sodium 40 mg 03/27/18 17:45 03/30/18 09:24 Protonix Iv IVPUSH 40 mg DAILY AHSAN Administration Imaging: -03/26 CTA: 4.7 x 4.0 x 4.9cm mediastinal mass within the right cardiophrenic angle, pericardial cyst v. lymph node v. malignancy -US b/l LE: negative for DVT Assessment: 52 year old male, with a significant past medical history of HTN and sleep apnea c/o right sided pleuritic chest pain about 6/10 in severity for the last 2 days. Started insidiously, found to have a mediastinal mass. Plan: 1. Mediastinal mass - Transfer to [place] to Dr. Rubio for further managemetn, biopsy r/o cyst v lymph node v malignancy - Continues to have right sided Chest pressure 2. Chest pain - CTA negative for PE - Trops x 2 negative 3. r/o heart failure - CT: mild pulmonary vascular congestion, small right pericardial effusion, trace extremity edema, decreased exercise tolerance x 2 weeks -03/27 Echo: LV function "low normal" EF 55-60% no RWMA; RV not well-visualized ; LAE; no valvular pathology - Was on furosemide until one month ago, stopped because of muscle cramps - BNP wnl 4. Hypertension - Continue losartan, amlodipine Dispo: Awaiting transfer, accepted for transfer by Dr. Mooney to CT service at [place]. CD-ROMs of imaging studies with chart. Visit type - Emergency Visit Emergency Visit: Yes ED Registration Date: 03/27/18 Care time: The patient presented to the Emergency Department on the above date and was hospitalized for further evaluation of their emergent condition. - New Patient This patient is new to me today: Yes Date on this admission: 03/31/18 - Critical Care Critical Care patient: No
[2018-03-31 09:27] VITALS: BP 129/75; PULSE 67; TEMP 98.3
[2018-03-31] MEDS: LOSARTAN POTASSIUM 50 MG TABLET (FP) PO SCH (09:28)
[2018-03-31] MEDS: amLODIPine BESYLATE 10 MG TABLET (FP) PO SCH (09:28)
[2018-03-31] MEDS ORDERED: PANTOPRAZOLE 40 MG TABLET (FP) PO SCH (10:00)
== END 2018-03-31 13:27 | disposition home or self-care (01) | DRG 178 ==
LOC: FER 16:17 → FM/S 21:10 → OBSVTOIN 03-27 16:17
PROVIDERS: ADMIT Internal Medicine; ATTEND Nurse Practitioner Acute Care
DX: J98.59 Other diseases of mediastinum, not elsewhere classified (principal); Z68.41 Body mass index [BMI] 40.0-44.9, adult; R07.89 Other chest pain; I10 Essential (primary) hypertension; G47.30 Sleep apnea, unspecified; E66.9 Obesity, unspecified; R22.9 Localized swelling, mass and lump, unspecified; Z85.118 Personal history of other malignant neoplasm of bronchus and lung
CPT/HCPCS: 36415; 71045-TC-FY; 71275-TC; 80048; 80053; 82550; 83880; 84484; 85025; 85027; 85379; 85610; 93306-TC; 93970-TC; 99285-25; G0378; J1644